=== PATIENT | female | born 1990 | race Caucasian/White ===

== ENCOUNTER → 2021-08-15 10:21 | Outpatient (CLI) | payer OTHER, MEDICAID, SELFPAY ==
[2021-08-15 11:55] LABS: COVID19 -Nasal RAPID Negative (Negative)
== END ==
PROVIDERS: PCP Family Medicine; Visit Provider Physician Assistant
DX: Z01.812 Encounter for preprocedural laboratory examination (principal); Z20.822 Contact with and (suspected) exposure to COVID-19
CPT/HCPCS: 87635; C9803

== ENCOUNTER 2021-08-18 06:14 | Day surgery (SDC) | payer OTHER, MEDICAID, SELFPAY ==
[2021-08-13 12:03] VITALS: BMI 24.3
[2021-08-18] VITALS (12 sets, daily range): BP systolic 122–139; BP diastolic 83–93; PULSE 86–111; RESP 12–16; TEMP 36.6–37.6; O2SAT 95–99; BMI 24.3
--- NOTE | 2021-08-18 | DI.RAD.S_ITS ---
PROCEDURE: XR ANKLE LT 2V INDICATIONS: SUBTALAR FUSION TECHNIQUE: 2 views of the ankle were acquired. COMPARISON: [facility], JULI, XR ANKLE 3 VIEWS WEIGHT BEARING LEFT, 03/05/2021, 16:23. FINDINGS: 3 submitted fluoroscopic images submitted demonstrates fusion of the posterior subtalar joint with 2 partially threaded fixation screws which are in expected positions. IMPRESSION: Fluoroscopic images demonstrating fusion of the posterior subtalar joint with 2 partially threaded fixation screws. Dictated by: Julius Echevarria Kailee Interpreted: Nelson Chapin MD on 08/18/2021 at 15:13 Transcribed by: CRAIG on 08/18/2021 at 15:26 Approved by: Nelson Chapin M.D. on 08/18/2021 at 16:53
[2021-08-18] MEDS: LACTATED RINGERS 1,000 ML 42 ML IV ×2 (07:19→11:58)
[2021-08-18] MEDS: ACETAMINOPHEN 325 MG TABLET 975 MG PO (07:22)
--- NOTE | 2021-08-18 08:20 | PM.PREOP ---
Pre-operative Note COVID-19 COVID-19 status: Negative Interval Note History & Physical reviewed/Exam performed by Physician: Yes Changes to H&P: No
--- NOTE | 2021-08-18 11:18 | SUR.PREOP ---
Block start time 11:00am . Monitoring initiated and maintained throughout procedure. Oxygen and medications given by anesthesiologist Dr Blackwood. Patient remained stable throughout procedure, no adverse reactions noted. Block end time 11:11am.
[2021-08-18] MEDS: CEFAZOLIN 2 GM/20 ML SYRINGE IV (11:30)
[2021-08-18] MEDS: BUPIVACAINE 0.25% (PF) 30 ML, EPINEPHrine 0.15 MG INJ (11:50)
--- NOTE | 2021-08-18 11:55 | SUR.OPER ---
Left Lateral on a burger bag, head on pillow, gel axillary roll in place, bottom leg bent with gel pad under knee to foot, upper leg straight and in control of the Surgeon supported by blanket bumps.. Upper arm supported by 2 pillows and secured over bottom arm to padded arm board. Gel pad in place under right arm on padded arm board, gel pad to edge of burger bag corner and patient left outer thigh and gel pad under patients right leg at outer thigh against burger bag. Safety belt at hip, tape over blanket lower legs.
--- NOTE | 2021-08-18 12:06 | SUR.OPER ---
Operating Room #1 reading Humidity as 17% upon patient entering.
--- NOTE | 2021-08-18 13:14 | PM.PROC.1 ---
Procedures Date/Time Date of procedure: 08/18/21 Time of procedure: 11:00 Nerve Block Time out performed: Yes Local anesthetic used: other (5mL 2% Lidocaine, 15mL 0.5% Ropivacaine) Location of anesthetic used: lateral popliteal Amount of anesthesia used (mL): 20 Nerve blocks: other (sciatic nerve) Procedure successful: Yes Patient tolerated procedure: well Complications: none Additional comments: LEFT Ultrasound guided lateral popliteal sciatic nerve block for post operative pain management, as discussed with surgeon. Risks, benefits discussed with patient and spouse. Consent verified. Site marked by surgeon. Time out performed. Standard ASA monitors applied, NC O2, 2mg versed. Pt supine. Chloroprep. Sciatic nerve identified proximal to popliteal fossa, at bifurcation. Lidocaine local skin wheal. 100mm x 21g Pajunk needle advanced with in-plane US guidance to nerve. Negative aspiration. 5mL 2% lidocaine and 15mL 0.5% ropivacaine injected with intermittent negative aspiration. Good LA spread noted on US. No pain, no paresthesias. VSS. Tolerated well.
--- NOTE | 2021-08-18 13:47 | P.OP_ITS ---
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 This has resulted in a painful left subtalar joint and difficulty with uneven ground. She has a stiff painful subtalar joint was indicated for operative intervention with subtalar fusion as she has failed conservative treatment with braces and activity modifications and anti- inflammatories. The risks and benefits of the procedure have been discussed with the patient even opportunity to ask questions. The risks of surgery include but are not limited to infection, malunion, nonunion, persistence of pain, damage to nerves and blood vessels, posttraumatic arthritis, DVT, PE, cardiopulmonary complications and . The patient expressed a thorough understanding of the risks and benefits of surgery and has elected to proceed. Consent was signed. Surgeon: Shona Baez Click Yes if Unassisted: Yes Anesthesia Type: General, Peripheral nerve block and Local (20 cc 0.25% Marcaine with epinephrine) Operative Notes Findings: Fibro-osseous subtalar coalition middle facet subtalar joint Closure Type: primary Specimen(s): none sent Prosthetic devices, grafts, tissues, transplants, or devices: 2 x [id number] 7.0 monster headless short thread cannulated screws 76 and 78 mm Estimated Blood Loss (mL): 30 Blood products transfused: none Tourniquet time (min): 86 Procedure in detail: Patient was seen in the preoperative area and the appropriate limb and site of surgery marked. Informed consent was confirmed. Patient was brought back to the operating room placed on the operating table given anesthetic. Prophylactic IV antibiotics were administered. Successful levels of anesthesia the patient was appropriately padded positioned and secured to the table. Surgical leg was then prepped and draped in the standard sterile fashion. A time-out procedure was performed confirming the patient's side and site of surgery presence of informed consent and administration of appropriate preoperative antibiotics. All were in agreement. Implants were in the room accounted for. Incision was made from the tip of the fibula to the base of the 4th metatarsal. Dissection was carried skin subcutaneous tissue. Sheath of the extensor digitorum brevis was opened. The extensor digitorum brevis was subperiosteal detached proximally and reflected distally. The sinus tarsi was cleared of its soft tissue and suppressive dissection was performed at the talus and calcaneus. A fibro-osseous middle facet coalition was encountered. This was extensive and required meticulous dissection with curette an osteotome in order to gain access to the subtalar joint in utilized a lamina spreaders to provide access to the posterior facet in order for facet preparation. We removed what was left was left of the articular surface and subchondral bone on the undersurface of the subtalar joint all the way medially to visualize FHL. Once we had good cancellous surfaces maintaining the normal shape and contour of the joints did test reduction to make sure we could reduce the joint appropriately. Joint surfaces were then drilled and fish-scaled. Once satisfied with the a primary reduction we placed bone graft (5 cc of demineralized bone matrix cortical fibers) along the posterior facet We then manually reduce and compress the joint and fixed it with 2 cannulated screws. These were placed from the posterior calcaneus across the subtalar joint and the talus and had excellent purchase and compression. The subtalar joint was fixed regularly in 5? of valgus. Request satisfied with the stability alignment hardware placement as noted both clinically and radiographically. We packed sinus further bone graft. Final x-rays were completed wound was irrigated. Hemostasis was achieved and the tourniquet released. Deep tissue was closed with 2-0 Vicryl. Subcutaneous tissues were closed with 4-0 Monocryl and the skin with 4-0 nylon. The heel incisions were repaired with 3-0 nylon. A sterile bulky bandage and posterior splint were applied. Patient was transferred to the recovery room in good condition. Complications: none Post-operative Condition: stable Disposition: PACU Plan for aftercare: Nonweightbearing toe-touch for balance okay. Elevate above the heart level. Aspirin starting postop day 1 for DVT prophylaxis. Follow-up in 2 weeks in clinic. Anticipate 2 weeks nonweightbearing in a splint followed by additional 4 weeks nonweightbearing in a short-leg cast and then 4 weeks progressive weight-bearing in a boot
[2021-08-18] MEDS: OXYCODONE IR 5 MG TABLET PO ×2 (14:02→14:43)
[2021-08-18] MEDS: hydrOXYzine pamoate 25 MG CAPSULE PO (14:14)
== END 2021-08-18 15:05 | disposition home or self-care (01) ==
PROVIDERS: PCP Family Medicine; Referring Provider Family Medicine; Visit Provider Orthopaedic Surgery Foot and Ankle Surgery
PROC: (CPT 27870; principal; 2021-08-18 07:45)
DX: Q66.89 Other specified congenital deformities of feet (principal); K21.9 Gastro-esophageal reflux disease without esophagitis
CPT/HCPCS: 28725; 64450; 73600; 76000; 81025; J0171; J0690; J1100; J2250; J2405; J2704; J3010